=== PATIENT | male | born 1985 | race Caucasian/White ===

== ENCOUNTER 2017-11-15 03:02 | Inpatient (IN) | payer MEDICAID, OTHER ==
[~2017-11-15] VITALS: Ht 170.2 cm; Wt 83.2 kg
[~2017-11-15 03:02] MED LIST: ALPR0.5T8 PO; LAMO100T56 PO
[2017-11-15 03:49] LABS: BASOPHILS % (AUTO) 0.5 % (0.0-2.0); EOSINOPHILS % (AUTO) 0.7 % (1.0-6.0); HEMATOCRIT 47.2 % (41-53); LYMPHOCYTES # (AUTO) 3.2 K/uL (1.0-4.8); LYMPHOCYTES % (AUTO) 30.1 % (22.0-44.0); MEAN CORPUSCULAR HEMOGLOBIN 32.7 pg (26.0-34.0); MEAN CORPUSCULAR HGB CONC 33.8 G/dL (31.0-37.0); MEAN CORPUSCULAR VOLUME 97 fL (80-100); MONOCYTES # (AUTO) 0.9 K/uL (0.1-1.0); MONOCYTES % (AUTO) 8.6 % (2.0-9.0); NEUTROPHILS # (AUTO) 6.3 K/uL (1.8-7.7); NEUTROPHILS % (AUTO) 60.1 % (40.0-70.0); PLATELET COUNT (AUTO) 289 K/uL (150-450); RED BLOOD CELL COUNT(AUTO) 4.89 MIL/uL (4.50-5.90); RED CELL DISTRIBUTION WIDTH 12.4 % (11.5-14.5)
[2017-11-15 03:57] LABS: ANION GAP 13 mmol/L (8-16); CALCIUM, TOTAL 9.8 mg/dL (8.8-10.5); CARBON DIOXIDE 27 mmol/L (22-29); CHLORIDE 101 mmol/L (98-107); CREATININE 1.13 mg/dL (0.60-1.30); GLOMERULAR FILTR. RATE CALC > 60 mL/min (>60); GLUCOSE,RANDOM 110 mg/dL (70-110); SODIUM SERUM 141 mmol/L (136-145); UREA NITROGEN, BLOOD 19 mg/dL (7-18)
[2017-11-15 04:03] LABS: ALANINE AMINOTRANSFERASE 35 U/L (12-78); ALBUMIN 4.6 g/dL (3.4-5.0); ALKALINE PHOSPHATASE 76 U/L (46-116); ASPARTATE AMINOTRANSFERASE 23 U/L (15-37); BILIRUBIN,TOTAL 0.6 mg/dL (0.1-1.0); TOTAL PROTEIN, SERUM 9.1 g/dL (6.4-8.2)
[2017-11-15 05:26] LABS: AMPHET/METH SCREEN,URINE NEGATIVE (NEGATIVE); BARBITURATE SCREEN, URINE NEGATIVE (NEGATIVE); BENZODIAZEPINES SCREEN,URINE NEGATIVE (NEGATIVE); CANNABINOID SCREEN,URINE NEGATIVE (NEGATIVE); COCAINE SCREEN,URINE NEGATIVE (NEGATIVE); METHADONE SCREEN, URINE NEGATIVE (NEGATIVE); OPIATE SCREEN,URINE NEGATIVE (NEGATIVE)
[2017-11-15 05:29] LABS: PHENCYCLIDINE SCREEN,URINE NEGATIVE (NEGATIVE)
[2017-11-15] MEDS ORDERED: SODIUM CHLORIDE 0.9% 1,000 ML IV ONE (06:15)
[2017-11-15 06:33] LABS: ACETAMINOPHEN < 2 mcg/mL (10-30)
[2017-11-15 06:58] LABS: SALICYLATE 1.9 mg/dL (2.8-20.0)
[2017-11-15] MEDS ORDERED: LORazepam 2 MG/ML VIAL IVP ONE (07:45)
[2017-11-15 09:44] VITALS: BP 135/80
[2017-11-15] MEDS ORDERED: MAGNESIUM SULFATE 2 GM, MVI, ADULT NO.1 WITH VIT K 10 ML, THIAMINE HCL 100 MG, FOLIC AC... IV ONE ×5 (11:00)
[2017-11-15] MEDS ORDERED: ONDANSETRON HCL 4 MG/2 ML VIAL IVP PRN (11:00)
[2017-11-15] MEDS ORDERED: LORazepam 2 MG/ML VIAL IM PRN (11:00)
[2017-11-15] MEDS ORDERED: MAGNESIUM HYDROXIDE SUSPENSION 30 ML UDCUP PO PRN (11:00)
[2017-11-15] MEDS ORDERED: BISACODYL 10 MG RECTAL RECTAL SUPPOSITORY PR PRN (11:00)
[2017-11-15] MEDS ORDERED: ZOLPIDEM TARTRATE 5 MG TABLET PO PRN (11:00)
[2017-11-15] MEDS ORDERED: ACETAMINOPHEN 325 MG TABLET PO PRN (11:00)
[2017-11-15 11:47] VITALS: BP 127/61
[2017-11-15] MEDS: LamoTRIgine 100 MG TABLET PO SCH ×2 (11:50→20:35)
[2017-11-15] MEDS: HEPARIN SODIUM,PORCINE 5,000 UNITS/ML VIAL SQ SCH ×2 (15:18→23:49)
[2017-11-15] MEDS: MORPHINE SULFATE 4 MG/ML SYRINGE IVP PRN (15:18)
[2017-11-15 15:28] VITALS: BP 137/64
[2017-11-15] MEDS: LORazepam 2 MG/ML VIAL IVP PRN (16:33)
[2017-11-15 19:17] VITALS: BP 146/83
[2017-11-15] MEDS: DOCUSATE SODIUM 100 MG CAPSULE PO SCH (20:34)
[2017-11-16 00:18] VITALS: BP 149/85
[2017-11-16] MEDS: HYDROCODONE/ACETAMINOPHEN 5-325 MG TABLET PO PRN ×3 (01:04→17:17)
[2017-11-16] MEDS: LORazepam 2 MG/ML VIAL IVP PRN (01:59)
[2017-11-16 04:46] VITALS: BP 122/77
[2017-11-16 07:13] VITALS: BP 114/76
[2017-11-16] MEDS: DOCUSATE SODIUM 100 MG CAPSULE PO SCH (08:33)
[2017-11-16] MEDS: HEPARIN SODIUM,PORCINE 5,000 UNITS/ML VIAL SQ SCH ×2 (08:33→16:00)
[2017-11-16] MEDS: LamoTRIgine 100 MG TABLET PO SCH (08:33)
[2017-11-16] MEDS: MORPHINE SULFATE 4 MG/ML SYRINGE IVP PRN (08:42)
[2017-11-16] MEDS ORDERED: PANTOPRAZOLE SODIUM 40 MG DR TABLET PO SCH (09:00)
[2017-11-16 11:38] VITALS: BP 119/65
[2017-11-16 15:35] VITALS: BP 132/70
== END 2017-11-16 18:10 | disposition home or self-care (01) | DRG 53 ==
LOC: EMS 03:03 → 5S 08:24
PROVIDERS: ADMIT Internal Medicine; ATTEND Internal Medicine
DX: G40.909 Epilepsy, unspecified, not intractable, without status epilepticus (principal); F10.239 Alcohol dependence with withdrawal, unspecified; F41.1 Generalized anxiety disorder
CPT/HCPCS: 70450; 96361; 96374; 99285; G0480; G0481; J1644; J2060; J2270; J3411; J3475; J3490; J7030